=== PATIENT | female | born 1935 | race American Indian/Alaskan Native ===

== ENCOUNTER 2016-11-18 08:51 | Outpatient (CLI) | payer MEDICARE ==
--- NOTE | 2016-11-18 15:42 | PET Report ---
PET SB TO MT SUBSEQUENT: HISTORY: Restaging of breast cancer. TECHNIQUE: 14.2 millicuries F-18 FDG was administered intravenously. Noncontrast CT images and PET images were obtained from the skull base to the proximal thighs. Fused images were reviewed on a workstation. The patient's blood glucose level measured 117. COMPARISON: 03/10/16. FINDINGS: BRAIN: physiologic FDG uptake in the imaged brain. NECK: physiologic FDG uptake. MEDIASTINUM: physiologic FDG uptake. LUNGS: physiologic FDG uptake. PLEURA/PERICARDIUM: physiologic FDG uptake. THORACIC LYMPH NODES: The previously described right axillary lymph node is stable in size measuring approximately 2 cm but demonstrates a decreased SUV from 12.2 to 7.8. A second smaller right axillary lymph node has resolved. There are 2 new enlarged right subpectoral lymph nodes measuring up to 1.7 cm which now demonstrate hypermetabolic activity with SUV measuring 5.9. HEPATOBILIARY: physiologic FDG uptake. Mean liver SUV measures 4.7. PANCREAS: physiologic FDG uptake. SPLEEN: physiologic FDG uptake. ADRENAL GLANDS: physiologic FDG uptake. KIDNEYS/RENAL COLLECTING SYSTEMS: physiologic FDG uptake. BOWEL/MESENTERY: physiologic FDG uptake. PELVIC VISCERA: physiologic FDG uptake. ABDOMINAL/PELVIC LYMPH NODES: physiologic FDG uptake. MUSCULOSKELETAL: physiologic FDG uptake. IMPRESSION: Mild progression of disease is demonstrated since 03/04/16. An enlarged right axillary lymph node is unchanged in size but demonstrates decreased metabolic activity as described. There are 2 new enlarged and hypermetabolic right subpectoral lymph nodes since the previous exam. No additional areas of disease are appreciated.
== END 2016-11-18 08:52 | disposition home or self-care (01) ==
LOC: PET 08:51
PROVIDERS: ATTEND Internal Medicine Hematology & Oncology
DX: C50.411 Malignant neoplasm of upper-outer quadrant of right female breast (principal)
CPT/HCPCS: 78815; A9552

== ENCOUNTER 2017-05-26 06:53 | Outpatient (CLI) | payer MEDICARE ==
--- NOTE | 2017-05-26 13:29 | PET Report ---
PET SB TO MT SUBSEQUENT: HISTORY: Restaging of breast cancer. TECHNIQUE: 13.5 millicuries F-18 FDG was administered intravenously. Noncontrast CT images and PET images were obtained from the skull base to the proximal thighs. Fused images were reviewed on a workstation. The patient's blood glucose level measured 112. COMPARISON: 11/18/69. FINDINGS: BRAIN: physiologic FDG uptake in the imaged brain. NECK: physiologic FDG uptake. MEDIASTINUM: physiologic FDG uptake. LUNGS: physiologic FDG uptake. PLEURA/PERICARDIUM: physiologic FDG uptake. THORACIC LYMPH NODES: There are 2 enlarged right subpectoral lymph nodes which have increased in size since the previous exam. The largest subpectoral lymph node measures 3.0 x 2.1 cm. Max SUV has decreased from 5.9 to 5.5. There is a new 1 cm right subpectoral lymph node with Max SUV measuring 2.9. A right axillary lymph node has increased from 2.1 x 1.6 cm to 3.0 x 2.1 cm. Max SUV has increased from 7.8 to 7.9. There is also a new 1 cm right axillary lymph node with Max SUV measuring 3.0. HEPATOBILIARY: physiologic FDG uptake. Mean liver SUV measures 5.6 as opposed to 4.7 on the previous study. PANCREAS: physiologic FDG uptake. SPLEEN: physiologic FDG uptake. ADRENAL GLANDS: physiologic FDG uptake. KIDNEYS/RENAL COLLECTING SYSTEMS: physiologic FDG uptake. BOWEL/MESENTERY: physiologic FDG uptake. PELVIC VISCERA: physiologic FDG uptake. ABDOMINAL/PELVIC LYMPH NODES: physiologic FDG uptake. MUSCULOSKELETAL: physiologic FDG uptake. IMPRESSION: Mild progression of disease is demonstrated since 11/18/16 exam. There are persistent hypermetabolic lymph nodes in the right subpectoral chain and right axillary chain which have increased in size and number as outlined above.
== END 2017-05-26 06:54 | disposition home or self-care (01) ==
LOC: PET 06:53
PROVIDERS: ATTEND Internal Medicine Hematology & Oncology
DX: C50.411 Malignant neoplasm of upper-outer quadrant of right female breast (principal); R94.8 Abnormal results of function studies of other organs and systems; R59.9 Enlarged lymph nodes, unspecified; R79.89 Other specified abnormal findings of blood chemistry
CPT/HCPCS: 78815; 82962; A9552

== ENCOUNTER 2018-03-02 09:58 | Outpatient (CLI) | payer MEDICARE ==
--- NOTE | 2018-03-02 16:14 | PET Report ---
PET/CT:03/02/18 09:58:00 CLINICAL: Breast cancer restaging. RADIOPHARMACEUTICAL: 14.7mCi F18-FDG. COMPARISON: 05/26/17 PET/CT TECHNIQUE- Following intravenous injection of F-18 FDG and an approximately 60 minute uptake period, CT and PET images from the mid skull to the upper thighs were acquired with the patient in the fasted state. No contrast was administered. The CT protocol used for this PET CT study is designed for attenuation correction and anatomic localization of PET abnormalities. This wire galvanizer CT is not desired to produce and cannot replace, [id number] diagnostic CT scans with specific imaging protocols for different body parts and indications. Plasma glucose at the time of this test: 113g/dl. The standardized uptake values (SUV) are normalized to patient body weight and indicate the highest activity concentration (SUV max) in a given disease site. FINDINGS: Brain--Physiologic FDG uptake in the visualized regions of the brain. Neck--Physiologic FDG uptake the mucosal structures. Chest--Physiologic FDG uptake in mediastinal blood pool and myocardium. Lungs--No abnormal uptake. No pulmonary nodule or mass. Pleura/pericardium--No abnormal uptake. Thoracic nodes--Right subpectoral and right axillary lymph nodes are slightly smaller but with greater SUV values. The dominant right subpectoral lymph node measures 2.5 x 1.5 cm with SUV 8.8 compared to 3.0 x 2.1 cm in SUV 7.9. The inferior right axillary lymph node measures 2.8 x 2.3 cm in SUV 8.8 compared to 3.0 x 2.1 cm in SUV 7.9. No new lead adenopathy. Hepatobiliary--No abnormal uptake. Liver background SUV mean, as a reference for comparing FDG studies, is 5.9 compared to 5.3 on the last exam. No liver mass. Spleen--No abnormal uptake. Pancreas--No abnormal uptake. Adrenal Glands--No abnormal uptake. Kidneys/Ureters/Bladder--No abnormal uptake. Abdominopelvic Nodes--No abnormal uptake. Bowel/Peritoneum/Mesentery--No abnormal uptake. Pelvic organs--No abnormal uptake. Bones/Soft Tissues--No abnormal uptake. No suspicious bone lesions. IMPRESSION-1. Slightly smaller right subpectoral and right axillary lymph nodes but with slightly greater FDG uptake. 2. No new disease.
== END 2018-03-02 09:59 | disposition home or self-care (01) ==
LOC: PET 09:58
PROVIDERS: ATTEND Internal Medicine Hematology & Oncology
DX: C50.411 Malignant neoplasm of upper-outer quadrant of right female breast (principal); R94.8 Abnormal results of function studies of other organs and systems; Z88.0 Allergy status to penicillin; Z88.8 Allergy status to other drugs, medicaments and biological substances
CPT/HCPCS: 78815; 82962; A9552

== ENCOUNTER 2021-02-19 09:10 | Outpatient (CLI) | payer MEDICARE ==
--- NOTE | 2021-02-19 14:15 | PET Report ---
PET/CT HISTORY: C50.411. Restaging of right breast cancer TECHNIQUE: The patient's fasting blood glucose was 92. The patient weighed 240 lbs. The patient wa s injected with 13.3 mCi of FDG in the left antecubital fossa at 1056 hours and imaging was started a t 1150 hours. The patient was imaged from the skull base to the thighs. All CT scans at this [facility] are performed using CT dose reduction for ALARA by means of automated exposure control. Images were reviewed on a workstation. COMPARISON: 03/02/2018 FINDINGS: IMAGED BRAIN: Physiologic FDG uptake. NECK: Physiologic FDG uptake. CHEST WALL: Physiologic FDG uptake. MEDIASTINUM: Physiologic FDG uptake. LUNGS: Physiologic FDG uptake. No suspicious pulmonary lesion has developed. HEPATOBILIARY: Physiologic FDG uptake. PANCREAS: Physiologic FDG uptake. SPLEEN: Physiologic FDG uptake. KIDNEYS/BLADDER: Physiologic FDG uptake. ADRENAL GLANDS: Physiologic FDG uptake. GI/MESENTERY: Physiologic FDG uptake. PELVIC VISCERA: Physiologic FDG uptake. Hysterectomy changes. LYMPH NODES: Right subpectoral and axillary adenopathy is again seen. The largest right subpectoral lymph node has decreased in size from 2.4 x 1.4 cm to 1.5 x 1.5 cm. Max SUV has decreased from 8.8 to 5.4. The largest right axillary lymph node has increased in size from 2.9 x 2.2 cm to 4.0 x 2.5 cm. Max SUV has decreased from 13.6 to 10.3. No new lymphadenopathy is detected in the chest, abdomen or pelvis. OSSEOUS STRUCTURES: Physiologic FDG uptake. No suspicious bony lesions are detected. ADDITIONAL FINDINGS: None. IMPRESSION: Right subpectoral adenopathy has decreased in size and metabolic activity as outlined above. Right a xillary adenopathy has increased in size but demonstrates decreased metabolic activity as described. No new areas of disease are appreciated since 03/02/2018. Signer Name: Leobardo Fagan Jr, MD Signed: 02/19/2021 2:10 PM Workstation Name: [id number]
== END 2021-02-19 09:11 | disposition home or self-care (01) ==
LOC: PET 09:10
PROVIDERS: ATTEND Internal Medicine Hematology & Oncology
DX: C50.411 Malignant neoplasm of upper-outer quadrant of right female breast (principal); R94.8 Abnormal results of function studies of other organs and systems
CPT/HCPCS: 78815; 82962; A9552

== ENCOUNTER 2021-12-24 08:46 | Outpatient (CLI) | payer MEDICARE ==
--- NOTE | 2021-12-24 15:23 | PET Report ---
PET/CT HISTORY: C50.411. Restaging of right breast cancer TECHNIQUE: The patient's fasting blood glucose was 109. The patient weighed 232 lbs. The patient w as injected with 12.7 mCi of FDG in the right antecubital fossa at 1047 hours and imaging was started at 1145 hours. The patient was imaged from the skull base to the thighs. All CT scans at this [facility] are performed using CT dose reduction for ALARA by means of automated exposure control. Images we re reviewed on a workstation. COMPARISON: 02/19/2021 FINDINGS: IMAGED BRAIN: Physiologic FDG uptake. NECK: Physiologic FDG uptake. CHEST WALL: Physiologic FDG uptake. MEDIASTINUM: Physiologic FDG uptake. LUNGS: Physiologic FDG uptake. HEPATOBILIARY: Physiologic FDG uptake. PANCREAS: Physiologic FDG uptake. SPLEEN: Physiologic FDG uptake. KIDNEYS/BLADDER: Physiologic FDG uptake. ADRENAL GLANDS: Physiologic FDG uptake. GI/MESENTERY: Physiologic FDG uptake. PELVIC VISCERA: Physiologic FDG uptake. LYMPH NODES: Bulky right axillary adenopathy has increased in size from 4.0 x 2.5 cm to 4.5 x 3.7 cm . Max SUV has increased from 10.3 to 12.4. There are a few smaller right subtentorial lymph nodes whi ch have increased in size slightly with max SUV increasing from 5.4 to 11.5. No new adenopathy is det ected. OSSEOUS STRUCTURES: Physiologic FDG uptake. ADDITIONAL FINDINGS: None. IMPRESSION: Mild progression of disease is demonstrated since 02/19/2021 PET/CT. Right subpectoral and axillary ad enopathy has increased slightly in size and metabolic activity as outlined above. No new areas of dis ease are detected. Signer Name: Leobardo Fagan Jr, MD Signed: 12/24/2021 3:18 PM Workstation Name: [id number]
== END 2021-12-24 08:47 | disposition home or self-care (01) ==
LOC: PET 08:46
PROVIDERS: ATTEND Internal Medicine Hematology & Oncology
DX: C50.411 Malignant neoplasm of upper-outer quadrant of right female breast (principal); R94.8 Abnormal results of function studies of other organs and systems; I10 Essential (primary) hypertension; M25.511 Pain in right shoulder; I49.9 Cardiac arrhythmia, unspecified; R59.1 Generalized enlarged lymph nodes
CPT/HCPCS: 78815; 82962; A9552